=== PATIENT | male | born 1990 | race Hispanic/Latino ===

== ENCOUNTER 2018-01-14 14:12 | Emergency (ER) | payer OTHER ==
[2018-01-14 14:25] VITALS: BP 113/71; PULSE 71; RESP 16; TEMP 98.5; O2SAT 100
--- NOTE | 2018-01-14 15:53 | ED PDOC ---
HPI: Skin/Bite Injury Time Seen by Provider: 01/14/18 14:28 Chief Complaint (Nursing): Abnormal Skin Integrity Chief Complaint (Provider): Abnormal Skin Integrity History Per: Patient History/Exam Limitations: no limitations Onset/Duration Of Symptoms: Gradual (x2 months) Current Symptoms Are (Timing): Still Present Additional Complaint(s): 27 year old male arrives to ED for an evaluation of progressively painful mass to his right buttock for the last 2 months. He denies any fever, chills, or trauma to affected area. Patient expresses concern for possible MRSA. PMD: none provided Past Medical History Reviewed: Historical Data, Nursing Documentation, Vital Signs Vital Signs: Last Vital Signs Temp 98.5 F 01/14/18 14:21 Pulse 71 01/14/18 14:21 Resp 16 01/14/18 14:21 BP 113/71 01/14/18 14:21 Pulse Ox 100 01/14/18 14:21 - Medical History PMH: No Chronic Diseases - Surgical History Surgical History: Tonsillectomy - Family History Family History: States: No Known Family Hx - Home Medications Home Medications: Ambulatory Orders Medication Instructions Recorded RX: Clindamycin [Cleocin] 300 mg PO TID #21 cap 01/14/18 - Allergies Allergies/Adverse Reactions: Allergies Allergy/AdvReac Type Severity Reaction Status Date / Time amoxicillin Allergy SWELLING Verified 01/14/18 14:21 cefaclor [From Ceclor] Allergy SWELLING Verified 01/14/18 14:21 Penicillins Allergy SWELLING Verified 01/14/18 14:21 Review of Systems ROS Statement: Except As Marked, All Systems Reviewed And Found Negative Constitutional: Negative for: Fever, Chills Skin: Positive for: Other (right buttock mass) Physical Exam - Reviewed Nursing Documentation Reviewed: Yes Vital Signs Reviewed: Yes - Physical Exam Appears: Positive for: Well, Non-toxic, No Acute Distress Skin: Positive for: Normal Color Back: Positive for: Other (small, fluctant papule with minimal surrounding erythema on medial right superior buttock (-) drainage or vesicles ) Neurologic/Psych: Positive for: Alert (x3), Oriented. Negative for: Motor/Sensory Deficits - ECG O2 Sat by Pulse Oximetry: 100 (RA) Pulse Ox Interpretation: Normal Medical Decision Making Medical Decision Making: Time: 1520 Initial Plan: * Needle aspiration of right buttock mass (see procedure note) * Wound culture Time: 1530 --Upon provider reevaluation, patient is medically stable and requires no further treatment in the ED at this time. Patient will be discharged home and advised to call ED in 48-72 hours to obtain wound culture results. Counseling was provided and all questions were answered regarding diagnosis. There is agreement to discharge plan. Return if symptoms persist or worsen. Clinical Impression: Abscess Scribe Attestation: Documented by Nickie Angelo, acting as a scribe for Andres Burnett PA-C. Provider Scribe Attestation: All medical record entries made by the Scribe were at my direction and personally dictated by me. I have reviewed the chart and agree that the record accurately reflects my personal performance of the history, physical exam, medical decision making, and the department course for this patient. I have also personally directed, reviewed, and agree with the discharge instructions and disposition. Disposition - Clinical Impression Clinical Impression: Abscess - Patient ED Disposition Is Patient to be Admitted: No Counseled Patient/Family Regarding: Studies Performed, Diagnosis, Need For Followup - Disposition Referrals: [facility] [Outside] [facility] [place] [Outside] Disposition: Routine/Home Disposition Time: 15:30 Condition: STABLE Additional Instructions: PATRICIA PALACIOS, thank you for letting us take care of you today. Your provider was Kaushal Christiansen MD and you were treated for POSS ABSCESS. The emergency medical care you received today was directed at your acute symptoms. If you were prescribed any medication, please fill it and take as directed. It may take several days for your symptoms to resolve. Return to the Emergency Department if your symptoms worsen, do not improve, or if you have any other problems. Please contact your doctor or call one of the physicians/clinics you have been referred to that are listed on the Patient Visit Information form that is included in your discharge packet. Bring any paperwork you were given at discharge with you along with any medications you are taking to your follow up visit. Our treatment cannot replace ongoing medical care by a primary care provider outside of the emergency department. Thank you for allowing the [facility] team to be part of your care today. If you had an X-Ray or CT scan: A Radiologist will review the ED reading if any change in treatment is needed we will contact you. If you had a blood, urine, or wound culture: It will take several days for the results, if any change in treatment is needed we will contact you. If you had an STI test: It will take 48 hours for the results. Please call after 1 week if you have not heard back. Prescriptions: RX: Clindamycin [Cleocin] 300 mg PO TID #21 cap Instructions: Boil (DC) Forms: [employer] (Kyrgyz) Print Language: KOREAN Procedure: Fluid Aspiration - Time Performed Time Performed: 15:20 (Right buttock mass) - Time Out Time Out: Side verified, Site verified, Sterile procedures obs. - Consent Obtained Consent obtained: Verbal - Performed By Performed by: Mid-level Provider (Hortencia) - Contraindications Contraindications: None - Anesthetic Technique Procedure: Usual prep and drape (sterile condition) - Appearance Appearance: Purulent (yellow material) - Drained Drained ml: 1/2 CC - Post-procedure Post-procedure: No fluid leak - Complications Complications: None - Patient tolerated procedure Patient tolerated procedure: Well
== END 2018-01-14 16:22 | disposition home or self-care (01) ==
LOC: H.ER 14:12
DX: L02.31 Cutaneous abscess of buttock (principal); Z88.0 Allergy status to penicillin